=== PATIENT | female | born 1970 | race Caucasian/White ===

== ENCOUNTER 2018-05-10 17:53 | Emergency (ER) | payer BC, SELFPAY ==
[2018-05-10 17:53] VITALS: BP 141/77; PULSE 107; RESP 18; TEMP 37.1; O2SAT 97; BMI 35.1
[2018-05-10 18:08] VITALS: O2SAT 98
--- NOTE | 2018-05-10 18:08 | EKG12_ITS ---
Test Reason : CP Blood Pressure : / mmHG Vent. Rate : 095 BPM Atrial Rate : 095 BPM P-R Int : 152 ms QRS Dur : 084 ms QT Int : 352 ms P-R-T Axes : 018 010 006 degrees QTc Int : 442 ms Normal sinus rhythm Normal ECG Confirmed by LÁZARO SQUIRES MD ([id number]), publishing editor BE ROSARIO ([id number]) on 05/12/2018 1:03:31 PM Referred By: QUINTIN Confirmed By:LÁZARO SQUIRES MD
--- NOTE | 2018-05-10 18:10 | RAD_ITS ---
STUDY: X-RAY CHEST REASON FOR EXAM: Female, 47 years old. Chest pain TECHNIQUE: Single AP portable view of the chest. COMPARISON: None. FINDINGS: The lungs are clear and expanded. There is no demonstrated pleural abnormality. Normal size heart. Normal mediastinum and bipin. Normal visualized pulmonary arteries. Normal visualized aortic arch and descending thoracic aorta. Normal visualized thoracic spine. Normal visualized ribs, clavicles, and shoulders. There is no demonstrated abnormality of the visualized soft tissue structures of the upper abdomen. RAD/Chest 1 View (Portable) IMPRESSION: Normal x-ray examination of the chest. Electronically Signed: Augie Galeano MD at 19:31 EDT , Service support ,
--- NOTE | 2018-05-10 18:17 | ED.VISSUMM ---
- ER Visit Summary Date of Service: 05/10/18 Chief Complaint: Midsternal chest pain History of Present Illness: The patient is a 47 F history of cardiac disease. States for weeks or months she has had intermittent chest discomfort with certain foods like pizza. No trouble swallowing. States when she woke up this morning she felt like there was a weight on her chest. Denies any dyspnea. She normally walks 4-5 miles a day without any exertional chest pain or exertional dyspnea. There is no significant family history of cardiac disease. She is never had a DVT or PE. She denies any vomiting or hematemesis. She feels like if she could drop it might relieve the discomfort in the epigastric region. She is a non-smoker. She is never had any type of cardiac workup. Physical Examination: Middle-aged female no acute distress vital signs are stable and afebrile. Pulse ox 97% on room air no hypoxia. HEENT exam unremarkable. Neck nontender. No lymphadenopathy. Lungs clear to auscultation bilaterally. Heart regular rate and rhythm no murmur. Abdomen soft nondistended with normal bowel sounds no peritoneal signs. But the right upper and right lower quadrant unremarkable. No Clements sign. Minimal epigastric tenderness. Extremities moves all 4. Equal symmetrical radial pulses. 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 Dorsi plantar flexion intact. Calves nontender without edema or cords. Neurologically she is awake and alert. Back exam is nontender. Test Results: Portable 1 view chest x-ray no acute abnormality normal silhouette. Normal mediastinum. Read both by myself and the radiologist. CBC shows a white count slightly elevated at 13.9. Hemoglobin 13.9. No bands. Chemistries normal. Normal creatinine gap. Liver enzymes are normal. Lipase is normal. Troponin normal. EKG sinus rhythm rate of 95 with no acute signs of [place] or ischemia. Emergency Department Course and Treatment: Patient undergo cardiac workup. Clinically this sounds more like reflux. She will be treated with p.o. Pepcid and GI cocktail. Treatment Plan: Repeat exam patient is doing well at 2015. We went over all of her test results. She has had no recent exertional symptoms. She typically walks 4-5 miles a day without exertional chest pain or shortness of breath. She will be placed on Protonix and instructed to follow-up with her primary care physician. She may need upper endoscopy or an ultrasound of her gallbladder if she is not improving with the medication. Disposition: Discharge Impression: Acute chest pain uncertain etiology Gastroesophageal reflux This note was generated with [employer] dictation software. It may contain incorrect words, spelling, and punctuation that were not noted in review of the chart prior to signing ED Disposition - Plan for ED Patient: Referrals: Rashawn Levi MD [Primary Care Provider] -
--- NOTE | 2018-05-10 18:20 | ED.DCSUM_ITS ---
- ER Visit Summary Date of Service: 05/10/18 Chief Complaint: Midsternal chest pain History of Present Illness: The patient is a 47 F history of cardiac disease. States for weeks or months she has had intermittent chest discomfort with certain foods like pizza. No trouble swallowing. States when she woke up this morning she felt like there was a weight on her chest. Denies any dyspnea. She normally walks 4-5 miles a day without any exertional chest pain or exertional dyspnea. There is no significant family history of cardiac disease. She is never had a DVT or PE. She denies any vomiting or hematemesis. She feels like if she could drop it might relieve the discomfort in the epigastric region. She is a non-smoker. She is never had any type of cardiac workup. Physical Examination: Middle-aged female no acute distress vital signs are stable and afebrile. Pulse ox 97% on room air no hypoxia. HEENT exam unremarkable. Neck nontender. No lymphadenopathy. Lungs clear to auscultation bilaterally. Heart regular rate and rhythm no murmur. Abdomen soft nondistended with normal bowel sounds no peritoneal signs. But the right upper and right lower quadrant unremarkable. No Clements sign. Minimal epigastric tenderness. Extremities moves all 4. Equal symmetrical radial pulses. 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 Dorsi plantar flexion intact. Calves nontender without edema or cords. Neurologically she is awake and alert. Back exam is nontender. Test Results: Portable 1 view chest x-ray no acute abnormality normal silhouette. Normal mediastinum. Read both by myself and the radiologist. CBC shows a white count slightly elevated at 13.9. Hemoglobin 13.9. No bands. Chemistries normal. Normal creatinine gap. Liver enzymes are normal. Lipase is normal. Troponin normal. EKG sinus rhythm rate of 95 with no acute signs of [place] or ischemia. Emergency Department Course and Treatment: Patient undergo cardiac workup. Clinically this sounds more like reflux. She will be treated with p.o. Pepcid and GI cocktail. Treatment Plan: Repeat exam patient is doing well at 2015. We went over all of her test results. She has had no recent exertional symptoms. She typically walks 4-5 miles a day without exertional chest pain or shortness of breath. She will be placed on Protonix and instructed to follow-up with her primary care physician. She may need upper endoscopy or an ultrasound of her gallbladder if she is not improving with the medication. Disposition: Discharge Impression: Acute chest pain uncertain etiology Gastroesophageal reflux This note was generated with [employer] dictation software. It may contain incorrect words, spelling, and punctuation that were not noted in review of the chart prior to signing ED Disposition - Plan for ED Patient: Referrals: Rashawn Levi MD [Primary Care Provider] -
[2018-05-10] MEDS: Famotidine 20 MG Tablet 40 MG PO (18:28)
[2018-05-10] MEDS: Mag Hydrox/Al Hydrox/Simeth 30 ML UDC PO (18:28)
[2018-05-10 18:45] LABS: Absolute Lymphocyte Count 2.61 X10^3/ul (0.83-4.51); Absolute Neutrophil Count 10.2 X10^3/uL (2.0-7.7); Basophil# 0.02 X10^3/uL; Basophil% 0.1 % (0-1); Eosinophil# 0.05 X10^3/uL; Eosinophils% 0.4 % (0-5); Hematocrit 41.7 % (37-47); Hemoglobin 13.9 g/dl (12.0-15.0); Lymphocyte # 2.61 X10^3/ul (4.0); Lymphocyte % 18.8 % (19-41); Mean Corp Hgb Conc 33.3 g/gl (32-36); Mean Corpuscular Hgb 28.3 pg (27.0-32.0); Mean Corpuscular Volume 84.9 fL (81-99); Mean Platelet Vol. 10.3 fl (6.2-12.0); Monocyte# 1.01 X10^3/uL; Monocyte% 7.3 % (0-10); Neutrophil # 10.19 X10^3/uL (2.7-7.7); Neutrophil % 73.2 % (47-70); Platelet Count 299 K/mm3 (150-450); RBC Distribution Width CV 12.9 % (11.6-14.6); RBC Distribution Width SD 39.3 fl (35.1-43.9); Red Blood Count 4.91 M/mm3 (4.2-5.4); White Blood Count 13.9 K/mm3 (4.4-11.0)
[2018-05-10 18:48] LABS: POSITIVE COUNT NO; POSITIVE DIFFERENTIAL NO; POSITIVE MORPHOLOGY NO
[2018-05-10 18:56] LABS: AST(SGOT) 17 U/L (15-37); Alanine Aminotransfer ALT/SGPT 36 U/L (13-56); Albumin, Serum 3.7 g/dL (3.2-5.0); Alkaline Phosphatase 103 U/L (45-117); Anion Gap 3 (5-15); BUN 9 mg/dL (7-18); BUN/Creat Ratio 13.4 RATIO (10-20); Bilirubin, Direct 0.19 mg/dL (0.00-0.30); Chloride 106 mmol/L (98-107); Creatinine, Serum 0.67 mg/dL (0.55-1.02); EST Glomerular Filtration Rate 101 mL/min (>60); Est Glom Filt Rate - Afr Amer 122 mL/min (>60); Estimated Creatinine Clearance 87.71 ml/min; Glucose 91 mg/dL (74-106); Lipase 71 U/L (73-393); Potassium 3.8 mmol/L (3.5-5.1); Protein, Total 7.7 g/dL (6.4-8.2); Sodium Level 138 mmol/L (136-145)
--- NOTE | 2018-05-10 20:18 | ED.DEP ---
ED Disposition - Plan for ED Patient: Disposition: Home or Assisted Living Instructions: ED Chest Pain Atypical Unkn Cause, ED GERD Prescriptions: Pantoprazole Sodium [Protonix] 40 mg PO DAILY #30 tab Referrals: Rashawn Levi MD [Primary Care Provider] - As soon as possible Additional Instructions: Your EKG, chest x-ray and labs were all unremarkable. More than likely this is non-cardiac chest pain and may be secondary to reflux or gastritis. We placed on medication to help with that. Also follow-up your primary care physician if you not improving with the medication we may have to get an ultrasound of your gallbladder and/or have an upper scope done to evaluate your esophagus in your stomach. Return to the ER if you are feeling a lot worse, increasing pain or fever.
[2018-05-10 20:29] VITALS: BP 138/61; PULSE 90; RESP 18; O2SAT 96
== END 2018-05-10 20:31 | disposition home or self-care (01) ==
PROVIDERS: Emergency Provider Emergency Medicine; Family Provider Family Medicine; PCP Family Medicine
DX: R07.9 Chest pain, unspecified (principal); K21.9 Gastro-esophageal reflux disease without esophagitis
CPT/HCPCS: 71045; 80048; 80076; 83690; 84484; 85025; 93005; 99285; A4216

== ENCOUNTER 2018-09-13 05:22 | Emergency (ER) | payer BC, SELFPAY ==
[2018-09-13 05:23] VITALS: BP 125/81; PULSE 89; RESP 16; TEMP 36.6; O2SAT 95; BMI 34.0
--- NOTE | 2018-09-13 05:40 | ED.DCSUM_ITS ---
- ER Visit Summary Date of Service: 09/13/18 Chief Complaint: Wound/abscess History of Present Illness: The patient is a 47 F who presents with a wound to her right forehead. She initially noticed this 4 to 5 days ago. She does have a history of MRSA. She saw her primary care physician yesterday and was started on Bactrim. This morning when she woke she had increased facial swelling. She has no pain. No systemic symptoms such as fevers nausea vomiting. She is not diabetic. Physical Examination: Afebrile vitals unremarkable Patient does have a small wound on the right forehead and some surrounding erythema and soft tissue swelling there is some periorbital edema on the right which is likely reactive No fluctuance Heart regular No respiratory distress Test Results: Not indicated Emergency Department Course and Treatment: Patient soft tissue swelling is mostly on the right I believe related to the facial abscess/facial cellulitis. She has no pain. There is no focal fluctuance. No abscess amenable to incision and drainage at this time. She is not systemically ill. I advised that for the swelling she ice and elevate. Given that she is only had 2 doses of Bactrim I would not call this failed treatment yet at this point. I advised that she continue the Bactrim but if she is not improving within the next couple of days to be reevaluated. She understands to return for new or worsening symptoms. She will follow-up as an outpatient. She was discharged. Treatment Plan: [] Disposition: Discharge Impression: Facial cellulitis This note was generated with [employer] dictation software. It may contain incorrect words, spelling, and punctuation that were not noted in review of the chart prior to signing ED Disposition - Plan for ED Patient: Referrals: Rashawn Levi MD [Primary Care Provider] -
--- NOTE | 2018-09-13 05:42 | ED.DEP ---
ED Disposition - Plan for ED Patient: Instructions: CELLULITIS, Facial Referrals: Rashawn Levi MD [Primary Care Provider] -
[2018-09-13 05:49] VITALS: BP 126/78; PULSE 98; RESP 16; O2SAT 98
== END 2018-09-13 06:00 | disposition home or self-care (01) ==
PROVIDERS: Emergency Provider Emergency Medicine; Family Provider Family Medicine; PCP Family Medicine
DX: L03.211 Cellulitis of face (principal); L02.01 Cutaneous abscess of face; Z86.14 Personal history of Methicillin resistant Staphylococcus aureus infection
CPT/HCPCS: 99282; A4216

== ENCOUNTER → 2018-09-14 | Outpatient (CLI) | payer BC, SELFPAY ==
[2018-09-13 05:23] VITALS: BMI 34.0
== END | disposition home or self-care (01) ==
LOC: LABSPEC 12:48
PROVIDERS: Family Provider Family Medicine; PCP Family Medicine; Referring Provider Family Medicine; Visit Provider Family Medicine
DX: L02.01 Cutaneous abscess of face (principal)
CPT/HCPCS: 87070; 87077; 87186; 87205

== ENCOUNTER → 2019-07-05 10:14 | Outpatient (CLI) | payer BC, SELFPAY ==
--- NOTE | 2019-07-05 10:24 | US_ITS ---
STUDY: ABDOMINAL ULTRASOUND REASON FOR EXAM: Female, 48 years old. ABD PAIN TECHNIQUE: Transabdominal ultrasound was performed with real-time and static montejo scale imaging. TECHNICAL QUALITY: Adequate. COMPARISON: None. FINDINGS: Liver: The liver measures 14.5 cm. There is normal echogenicity of the liver. The bile ducts are within normal limits. There is hepatic color flow. The direction of portal flow is hepatopetal. There is no demonstrated mass lesion. Portal vein measurement: Gallbladder: Normal distended gallbladder. The gallbladder wall measures 3 mm. There is a negative sonographic Clements''s sign. There is no pericholecystic fluid. There is a solitary echogenic gallstone within the gallbladder. Common Bile Duct (C.B.D.): The common bile duct measures 5 mm. Pancreas: Normal size of the head, body and tail of the pancreas. There is normal echogenicity of the pancreas. There is no demonstrated pancreatic mass or cyst. Spleen: Normal size of the spleen. The spleen measures 12 cm. Right Kidney: Normal size of the right kidney. The right kidney measures 11.9 x 5.9 x 4.3 cm. Normal renal cortex. The right cortex measures 2.0 cm. There is no demonstrated renal mass or cyst. There is no right hydronephrosis. Left Kidney: Normal size of the left kidney. The left kidney measures 11.5 x 5.2 x 5.2 cm. Normal renal cortex. The left cortex measures 1.5 cm. There is no demonstrated renal mass or cyst. There is no left hydronephrosis. Aorta: Tapers normally I.V.C.: The IVC is patent. There is no ascites. There is a palpable lump noted by the patient in the epigastric region, there is a subcutaneous slightly hyperechoic well-defined 2.5 x 2.2 x 1.4 cm nodule, likely a lipoma. US/Abdomen Complete IMPRESSION: Cholelithiasis, no sonographic evidence of acute cholecystitis Likely subcutaneous lipoma corresponding to the palpable abnormality in the subcutaneous tissue near the epigastrium. No specific follow-up needed Electronically Signed: Santos Chicas MD at 11:53 EDT , Service support ,
== END ==
PROVIDERS: PCP Family Medicine; Referring Provider Family Medicine; Visit Provider Family Medicine
DX: R10.9 Unspecified abdominal pain (principal)
CPT/HCPCS: 76700

== ENCOUNTER 2019-07-14 08:15 | Day surgery (SDC) | payer BC, SELFPAY ==
[2019-07-11 12:30] VITALS: BMI 34.0
--- NOTE | 2019-07-13 11:59 | EKG12_ITS ---
Test Reason : PRE-OP Blood Pressure : / mmHG Vent. Rate : 088 BPM Atrial Rate : 088 BPM P-R Int : 148 ms QRS Dur : 084 ms QT Int : 360 ms P-R-T Axes : 068 038 020 degrees QTc Int : 435 ms Normal sinus rhythm Normal ECG Confirmed by LAMAR BRASWELL, ITZEL ([id number]), proposal editor GARO CARDENAS ([id number]) on 07/17/2019 11:34:53 AM Referred By: Ludin Barnard Confirmed By:ROMAIN NEWTON MD
[2019-07-13 12:40] LABS: Hematocrit 43.5 % (37-47); Hemoglobin 14.2 g/dL (12.0-15.0); Mean Corp Hgb Conc 32.6 g/dL (32-36); Mean Corpuscular Hgb 27.7 pg (27.0-32.0); Mean Corpuscular Volume 84.8 fL (81-99); Mean Platelet Vol. 10.5 fl (6.2-12.0); Platelet Count 328 K/mm3 (150-450); RBC Distribution Width SD 36.4 fl (35.1-43.9); Red Blood Count 5.13 M/mm3 (4.2-5.4); White Blood Count 7.2 K/mm3 (4.4-11.0)
[2019-07-13 12:55] LABS: Anion Gap 7 (5-15); BUN 9 mg/dL (7-18); BUN/Creat Ratio 14.1 RATIO (10-20); Calcium,Total 9.2 mg/dL (8.5-10.1); Chloride 107 mmol/L (98-107); Creatinine, Serum 0.64 mg/dL (0.55-1.02); EST Glomerular Filtration Rate 106 mL/min (>60); Est Glom Filt Rate - Afr Amer 128 mL/min (>60); Glucose 115 mg/dL (74-106); Potassium 3.7 mmol/L (3.5-5.1); Sodium Level 140 mmol/L (136-145)
[2019-07-14 08:45] LABS: Internal QC Validated? YES +Cl - CLEAR BKGD; Pregnancy, Urine Negative Negative
[2019-07-14 08:48] VITALS: BP 130/71; PULSE 88; RESP 16; TEMP 37; O2SAT 100; BMI 32.5
--- NOTE | 2019-07-14 08:54 | PCM.HP.BLA ---
Problem List (1) Cholelithiasis with chronic cholecystitis Status: Chronic Qualifiers: Cholelithiasis location: gallbladder Biliary obstruction: without biliary obstruction Qualified Code(s): K80.10 - Calculus of gallbladder with chronic cholecystitis without obstruction History and Physical Date of Admission: 07/14/19 Intake Visit Reasons: Gall Stones/U/S [facility] 07/04 Chief Complaint: cholelithiasis Partner Manager Required: No Is patient in pain?: No Allergies Sulfa (Sulfonamide Antibiotics) Allergy (Severe, Verified 07/11/19 12:25) facial swelling latex Allergy (Intermediate, Verified 07/11/19 12:25) Rash codeine Adverse Reaction (Verified 09/13/18 05:22) Other Medications NK 09/13/18 [History Confirmed 07/11/19] [facility] Medical History (Updated 07/11/19 @ 12:[address] Ludin Barnard MD) Cholelithiasis with chronic cholecystitis (Chronic) Abdominal pain (Acute) Cholelithiasis (Acute) Nausea & vomiting (Acute) Surgical History (Updated 07/11/19 @ 12:23 by Lucy Anglin) history incsion and drainage oral abscess (Acute) Family History (Updated 07/11/19 @ 12:23 by Lucy Anglin) Sister Asthma Social History (Updated 07/11/19 @ 12:[address] Ludin Barnard MD) Smoking Status: Never smoker alcohol intake: never substance use type: does not use HPI HPI HPI: JAIMIE CLAYTON, is a 48 F who presents to the office today for surgical consultation regarding increasingly frequent episodes of epigastric discomfort some radiation to the back some mild fever chilling sweats nausea. The patient is referred by Dr. Rashawn Gomez and a written copy my surgical consult recommendations will return to him. For over a year she has had the symptoms but they seem to be more frequent. Recently they have been severe enough with nausea and vomiting that she has decreased her diet to mostly salads. She has progressively had some weight gain over the past year. Sounds like some of her physical exercise has diminished. She was treated with a proton pump inhibitor but has not had any improvement. She has not had any surgery on her abdomen. She actually states that about a year ago because of discomfort she was sent to the emergency room to exclude cardiac etiology which she states was effectively done. [facility] Imaging Services [address] [place] [address] Abdomen Complete MR#: [id number] Name: JAIMIE CLAYTON [facility] #:[id number] : [id number] From: Chan Chicas MD PCP:Dr. Rashawn Gomez MD Status:REG CLI Study:Abdomen Complete Date of Exam:07/05/19 Exam#[id number] Ordering Dr: Rashawn Gomez MD STUDY: ABDOMINAL ULTRASOUND REASON FOR EXAM: Female, 48 years old. ABD PAIN TECHNIQUE: Transabdominal ultrasound was performed with real-time and static montejo scale imaging. TECHNICAL QUALITY: Adequate. COMPARISON: None. FINDINGS: Liver: The liver measures 14.5 cm. There is normal echogenicity of the liver. The bile ducts are within normal limits. There is hepatic color flow. The direction of portal flow is hepatopetal. There is no demonstrated mass lesion. Portal vein measurement: Gallbladder: Normal distended gallbladder. The gallbladder wall measures 3 mm. There is a negative sonographic Clements''s sign. There is no pericholecystic fluid. There is a solitary echogenic gallstone within the gallbladder. Common Bile Duct (C.B.D.): The common bile duct measures 5 mm. Pancreas: Normal size of the head, body and tail of the pancreas. There is normal echogenicity of the pancreas. There is no demonstrated pancreatic mass or cyst. Spleen: Normal size of the spleen. The spleen measures 12 cm. Right Kidney: Normal size of the right kidney. The right kidney measures 11.9 x 5.9 x 4.3 cm. Normal renal cortex. The right cortex measures 2.0 cm. There is no demonstrated renal mass or cyst. There is no right hydronephrosis. Left Kidney: Normal size of the left kidney. The left kidney measures 11.5 x 5.2 x 5.2 cm. Normal renal cortex. The left cortex measures 1.5 cm. There is no demonstrated renal mass or cyst. There is no left hydronephrosis. Aorta: Tapers normally I.V.C.: The IVC is patent. There is no ascites. There is a palpable lump noted by the patient in the epigastric region, there is a subcutaneous slightly hyperechoic well-defined 2.5 x 2.2 x 1.4 cm nodule, likely a lipoma. US/Abdomen Complete IMPRESSION: Cholelithiasis, no sonographic evidence of acute cholecystitis Likely subcutaneous lipoma corresponding to the palpable abnormality in the subcutaneous tissue near the epigastrium. No specific follow-up needed Electronically Signed: Santos Chicas MD at 11:53 EDT , Service support , HPI HPI HPI: JAIMIE CLAYTON, is a 48 F who presents to the office today for ROS General General: Yes weight change; no appetite, fatigue, colon cancer, breast cancer or weakness HEENT HEENT: No difficulty swallowing, eye injury, eye surgery, swollen glands or hoarseness Endo Endocrine: No thyroid disease, diabetes mellitus, thyroid cancer, Hair loss, heat intolerance or cold intolerance Skin Skin: No rash or changing moles Breast Breast: No left breast lump, right breast lump, nipple discharge, breast pain, abnormal mammogram, abnormal US or breast enlargement Musc Musculoskeletal: No back problems, arthritis, rheumatoid arthritis, gout or joint pain Cardio Cardiovascular: No murmur, pacemaker, heart disease, atrial fibrillation, high blood pressure, heart attack, heart stent, palpitations, shortness of breat with exertion or chest pain Psych Psychiatric: No depression, anxiety or hearing voices Resp Respiratory: No shortness of breath, No sleep apnea, No cough, No COPD, No asthma, No emphysema, No wheezing Gastro Gastrointestinal: Yes abdominal pain, Yes nausea or vomiting, No diarrhea, No constipation, No blood in stool, No acid reflux, No hemorrhoids, No ulcers, Yes gallbladder problem, No black,tarry stools Leo Hematologic: No blood thinners, No blood disorders, No bleeding, No anemia, No blood clots Neuro Neurologic: No system reviewed and no additional complaints, except as docu, No as per HPI, No abnormal walking, No abnormal hearing, No abnormal movements, No abnormal speech, No behavioral changes, No burning sensations, No confusion, No seizure-like activity, No unsteadiness, No dizziness, No localized weakness, No frequent falls, No headache(s), No lack of coordination, No loss of vision, No memory loss, No numbness, No other visual disturbances, No radiating pain, No restless legs, No sensory deficit, No fainting, No tingling, No tremor(s), No weakness, No other Exam Const General: cooperative, healthy appearing, comfortable, no acute distress Nutritional Appearance: obese Orientation: alert, awake HENNE Head: normal to inspection Chest Chest palpation & inspection: normal inspection of the chest Breast Palpation: No nipple discharge Resp Effort & Inspection: normal respiratory effort Auscultation: clear to auscultation bilaterally Cardio Rate: regular rate Rhythm: regular rhythm Heart Sounds: no murmurs GI Palpation: soft, no hepatosplenomegaly Auscultation: normal bowel sounds Musc Cervical Spine: normal cervical lordosis Neuro Cognition: normal cognition Extrem General: no calf tenderness Psych Affect: normal affect Assessment & Plan 1. Calculus of gallbladder with chronic cholecystitis without obstruction K80.10 Plan The patient's clinical presentation and findings are very much consistent with biliary colic, chronic cholecystitis cholelithiasis. I recommended the patient laparoscopic cholecystectomy with selective cholangiography. She is aware of the technique, benefit, risk and alternatives. She presents via the Covid-19 pandemic. She is aware that the [facility] administration suggests a low local incidence. I do concur with proceeding at a timing of her convenience as this pandemic will be ongoing for months. I appreciate the opportunity of assisting with her surgical care Cc: Dr. Rashawn Barnard M.D., F.A.C.S. Coding Level of Care Code 78750 Diagnoses Calculus of gallbladder with chronic cholecystitis without obstruction K80.10 ??Cholelithiasis location: gallbladder ??Biliary obstruction: without biliary obstruction I have re-examined the patient. There are no clinical changes since date of exam. Procedure Criteria Procedure Type: Elective COVID Risk Discussion: The surgeon/proceduralist and patient have discussed in detail the risk of exposure to and/or potential harm posed by the COVID-19 virus with having a surgery/procedure at this time versus the risk of delaying the surgery/procedure. It is not possible to know either the risk of delaying the surgery or procedure or chance of getting an infection with perfect accuracy, but a joint decision was made between the patient and the surgeon/proceduralist to proceed at this time with the scheduled surgery/procedure as indicated on the consent form.
--- NOTE | 2019-07-14 08:55 | DCINST_ITS ---
Discharge Diet: Light diet - advance as tolerated - if you have questions about your diet instructions, please talk to you doctor. Discharge Activity: May Not Drive - for 3-5 days or while taking narcotic pain medicine. May shower in (days): 1 Lifting Restrictions: 10 pounds Call your doctor if your incision/area has: Continuous Slow Oozing, Sudden Increased Bleeding, Increased Pain/ Swelling, Increased Redness, Foul Smelling Discharge Call your doctor if you observe: Fever of 101 or Higher Suture Line Care: Avoid Pulling/Pushing, Avoid Pinching/Bending Additional Dressing/Incision Instructions:: Change or remove dressing in 4 days. Leave steri-strips in place for 1 week. Allergies/Adverse Reactions: Allergies Sulfa (Sulfonamide Antibiotics) Allergy (Severe, Verified 07/14/19 08:45) facial swelling latex Allergy (Intermediate, Verified 07/14/19 08:45) Rash codeine Adverse Reaction (Verified 07/14/19 08:45) Other Medications to take at Discharge NK 09/13/18 Primary Care Physician: Rashawn Gomez MD [Primary Care Provider] - Test Results: Test results from this visit will be discussed in further detail at your follow- up appointment, if applicable. Please Follow Up With: Ludin Barnard MD - [phone] When: Call to make an appointment to be seen in about 10 days. Virtual
[2019-07-14] MEDS: Lactated Ringers 1,000 ML 100 ML IV ×2 (08:57→11:45)
[2019-07-14] MEDS: Cefazolin 2 GM in 0.9% Normal Saline 100 ML IV (10:28)
--- NOTE | 2019-07-14 10:40 | GALL_PTH ---
PATIENT: JAIMIE CLAYTON [place] [facility] [place][id number] AGE/SX: 48/F ROOM: RE07/14/[address]: Dr. Ludin Barnard MD : [id number] BED: DIS: 07/14/2019 SPEC #: [id number] RECD: 07/14/19 12:55 STATUS: IRMA NG #: [id number] MEDINA: 07/14/19 10:[address]: Ludin Barnard DEPT: SURGICAL PATHOLOGY RECD BY: Benjamin Block ENTERED: 07/17/19 09:25 SP TYPE: SUNDAR CHACON DR: Dr. Rashawn Gomez MD Tissues: Gallbladder, NOS Procedures: Surgery Specimen Level III HEADER OPERATION: Laparoscopic cholecystectomy with IOC PRE-OP DIAGNOSIS: Calculus gallbladder with chronic cholecystitis without obstruction TISSUE SUBMITTED: Gallbladder MICROSCOPIC DIAGNOSIS Gallbladder, cholecystectomy: Mild chronic cholecystitis, cholelithiasis and cholesterolosis. SJ:aminata 07/18/19 MICROSCOPIC DESCRIPTION Slides are reviewed. GROSS DESCRIPTION Received is one container labeled with the patient's name and designated gallbladder. The specimen consists of a gallbladder measuring 8 x 3 x 3 cm. The external surface is smooth and glistening. Focally, it is granular, hemorrhagic and contains cautery artifact. The lumen of the gallbladder contains yellow-green mucoid bile and one crystal-green calculus measuring 1 cm in diameter. The mucosa is bile-stained and without any mass lesions. The gallbladder wall averages 0.2 cm in thickness and is free of mass lesions. Electrical Foreman sections of the gallbladder and the cystic duct at margin of resection are submitted in one cassette. / AM:aminata 07/17/19 TC:3 CPT: 09637
--- NOTE | 2019-07-14 10:50 | RAD_ITS ---
STUDY: INTRAOPERATIVE GLANDULAR PATTERN. REASON FOR EXAM: Female, 48 years old. LAPAROSCOPIC cholecystectomy. FLUOROSCOPY TIME (if supplied): ( 19.9 seconds ) minutes/seconds. A cine loop consisting of 146 images was submitted. TECHNIQUE: An intraoperative Cholangiogram was performed by the surgeon. Imaging was obtained. COMPARISON: None. FINDINGS: The common bile duct is not dilated. No intraluminal filling defect is seen. The intrahepatic bile ducts are unremarkable. There is free flow of contrast into the duodenum. RAD/Cholangiogram/ O R,Initial IMPRESSION: Unremarkable intraoperative cholangiogram. Electronically Signed: Del Kellogg, at 13:41 EDT , Service support ,
[2019-07-14] MEDS: Bupivacaine Mpf 0.5% 30 ML VIAL (11:41)
--- NOTE | 2019-07-14 11:43 | PCM.OPRPT ---
Problem List (1) Cholelithiasis with chronic cholecystitis Status: Chronic Qualifiers: Cholelithiasis location: gallbladder Biliary obstruction: without biliary obstruction Qualified Code(s): K80.10 - Calculus of gallbladder with chronic cholecystitis without obstruction Report of Operation Date of Procedure: 07/14/19 Pre-Operative Diagnosis: Chronic cholecystitis cholelithiasis Post-Operative Diagnosis: Same Surgery/Procedure Performed:: Laparoscopic cholecystectomy with cholangiograms Description of Surgical Findings:: Timeout and informed consent was obtained. 48-year-old female was taken to the operating placed on the table underwent general endotracheal intubation anesthesia. The abdomen sterilely prepped and draped. 0.5% Marcaine was used as a local anesthetic. Throughout the procedure total 30 cc was used. Skin sites were pre-anesthetized. A vertical infraumbilical incision was created holding sutures of 0 Vicryl placed varies needle inserted saline drop test performed the abdomen was insufflated with CO2 to a pressure of 10 mmHg pressure. 10 mm trocar inserted. 10 laparoscope inserted. No evidence of any trocar injuries. On direct physician 5 mm trochars were placed in the epigastric mid abdomen right upper quadrant.. The abdomen was superficially inspected without gross abnormality. The gallbladder was distracted tedious blunt dissection was instituted at the infundibulum until clearly the cystic duct and cystic artery were identified. The artery was clipped proximally and distally prior to transecting it. Circumferential control was obtained of the cystic duct it was rather short. I was able to get the critical view. I placed a hemo-lock clip on the cystic duct made an incision placed a cholangiogram catheter and was able to get fluoroscopically control cholangiograms. This demonstrated free flow into the common bile duct. 2 hemo-lock clips were placed on the cystic duct stump prior to transecting it. The gallbladder was then tediously dissected free from the liver bed. Very small amount of bile spillage from the infundibular area occurred but that was rapidly aspirated free. The remainder was then nicely contained. The gallbladder was released immediately placed in a retrieval bag. The right upper quadrant was irrigated and aspirated free of excess fluid. Fibular was placed in the liver bed to further assure good hemostasis. With excellent hemostasis and a dry upper abdomen the gallbladder was exited the umbilicus. The air was allowed to deflate through the antiviral valve. Trochars were removed. The fascia at the umbilicus approximated up to 0 Vicryl [id number] suture. Skin edges approximated opted for Monocryl subdermal stitches. Steri-Strips Telfa OpSite dressings applied. Sponge and instrument and needle counts were reported to the surgeon to be correct. Blood loss minimal. Specimens gallbladder. Drains none. Blood loss minimal. Ludin Barnard M.D., F.A.C.S. Type of Anesthesia:: General Anesthesiologist: Chioma Segundo
[2019-07-14 11:59] VITALS: BP 130/71; BP 148/92; PULSE 94; RESP 16; TEMP 36.8; O2SAT 95
[2019-07-14 12:15] VITALS: BP 130/71; BP 143/73; PULSE 68; RESP 16; O2SAT 97
[2019-07-14 12:30] VITALS: BP 130/71; BP 144/79; PULSE 65; RESP 16; O2SAT 97
[2019-07-14 12:41] VITALS: BP 130/71; BP 138/86; PULSE 83; RESP 18; TEMP 36.4; O2SAT 97
[2019-07-14] MEDS: HYDROcodone Bitartrate/Apap 5/325 Tablet PO (14:52)
[2019-07-14 15:22] VITALS: BP 130/71; BP 139/79; PULSE 71; RESP 16; TEMP 36.4; O2SAT 94
== END 2019-07-14 15:56 | disposition home or self-care (01) ==
LOC: SDC 08:16 → AC 08:22
PROVIDERS: Anesthesiology; PCP Family Medicine; Referring Provider Surgery; Visit Provider Surgery
PROC: (CPT 47610; principal; 2019-07-14 10:20)
DX: K80.10 Calculus of gallbladder with chronic cholecystitis without obstruction (principal); Z11.59 Encounter for screening for other viral diseases
CPT/HCPCS: 00790; 47563; 36415; 74300; 76000; 80048; 81025; 85027; 87635; 88304; 93005; G2023; J7120; J2405; U0004

== ENCOUNTER → 2020-02-07 07:42 | Outpatient (CLI) | payer BC, SELFPAY ==
--- NOTE | 2020-02-07 07:49 | CT_ITS ---
STUDY: CT MAXILLOFACIAL SINUSES REASON FOR EXAM: Female, 49 years old. Sinusitis. LEFT MAXILLARY PAIN FOLLOWING ROOT CANAL 1 YEAR AGO . QUESTIONING BONE EROSION IN AREA OF ROOT CANAL/ LEFT UPPER RADIATION DOSAGE (If Supplied By Facility): CTDIvol = ( 33.06 ) mGy, DLP = ( 813.19 ) mGycm TECHNIQUE: The patient was scanned in a multi detector CT scanner. High resolution axial imaging was performed without the administration of intravenous contrast material. Sagittal and coronal images were reconstructed. Individualized dose optimization techniques were used for this CT. COMPARISON: None. FINDINGS: FRONTAL SINUSES: Normal aeration, without mucosal inflammatory disease. ETHMOIDAL SINUSES: Normal aeration, without mucosal inflammatory disease. MAXILLARY SINUSES: Normal aeration, without mucosal inflammatory disease. SPHENOIDAL SINUSES: Normal aeration, without mucosal inflammatory disease. There is patency of the bilateral maxillary infundibuli with normal uncinate processes, ethmoid bullae, and hiatus semilunaris. Normal bilateral middle turbinates. Normal bilateral inferior turbinates. There is a right sided nasal septal deviation with a right sided nasal septal spur. There is patency of the bilateral nasal airways. The visualized osseous structures are normal. The visualized bilateral orbital contents are normal. CT/Sinus/Facial Bone IMPRESSION: Normal CT examination of the maxillofacial sinuses. Nasal septal deviation towards the right side of the midline with a spur Electronically Signed: Del Kellogg, at 10:09 EST , Service support ,
== END ==
PROVIDERS: PCP Family Medicine; Referring Provider Otolaryngology; Visit Provider Otolaryngology
DX: J32.9 Chronic sinusitis, unspecified (principal)
CPT/HCPCS: 70486

== ENCOUNTER → 2020-10-17 | Outpatient (CLI) | payer BC, SELFPAY | END | disposition home or self-care (01) | LOC: LABSPEC 14:33 | PROVIDERS: PCP Family Medicine; Referring Provider Family Medicine; Visit Provider Family Medicine | DX: U07.1 COVID-19 (principal) | CPT/HCPCS: 87635; U0005; U0003 ==

== ENCOUNTER → 2020-11-29 12:49 | Outpatient (CLI) | payer BC, SELFPAY ==
[2020-11-29 15:49] LABS: Anion Gap 6 (5-15); BUN 9 mg/dL (7-18); BUN/Creat Ratio 13.7 RATIO (10-20); Calcium,Total 9.2 mg/dL (8.5-10.1); Chloride 105 mmol/L (98-107); Creatinine, Serum 0.66 mg/dL (0.55-1.02); EST Glomerular Filtration Rate 102 mL/min (>60); Est Glom Filt Rate - Afr Amer 124 mL/min (>60); Glucose 90 mg/dL (74-106); Potassium 3.5 mmol/L (3.5-5.1); Sodium Level 139 mmol/L (136-145); Thyroid Stim Hormone (TSH) < 0.01 uIU/mL (0.358-3.74)
[2020-11-29 17:23] LABS: Basophil# 0.02 X10^3/uL; Basophil% 0.2 % (0-1); Eosinophil# 0.21 X10^3/uL; Eosinophils% 2.1 % (0-5); Hematocrit 42.5 % (37-47); Hemoglobin 13.8 g/dL (12.0-15.0); Lymphocyte % 30.3 % (19-41); Mean Corp Hgb Conc 32.5 g/dL (32-36); Mean Corpuscular Hgb 27.2 pg (27.0-32.0); Mean Corpuscular Volume 83.7 fL (81-99); Mean Platelet Vol. 11.2 fl (6.2-12.0); Monocyte# 0.63 X10^3/uL; Monocyte% 6.4 % (0-10); NRBC Flagged by Analyzer 0 % (0-5); Neutrophil # 6.01 X10^3/uL (2.7-7.7); Neutrophil % 60.7 % (47-70); Platelet Count 339 K/mm3 (150-450); RBC Distribution Width CV 12.5 % (11.6-14.6); RBC Distribution Width SD 38.1 fl (35.1-43.9); Red Blood Count 5.08 M/mm3 (4.2-5.4); White Blood Count 9.9 K/mm3 (4.4-11.0)
== END ==
PROVIDERS: PCP Family Medicine; Referring Provider Family Medicine; Visit Provider Family Medicine
DX: R63.5 Abnormal weight gain (principal)
CPT/HCPCS: 36415; 80048; 84443; 85025

== ENCOUNTER → 2020-12-12 12:18 | Outpatient (CLI) | payer BC, SELFPAY ==
[2020-12-12 15:46] LABS: Free T3 5.5 pg/mL (2.18-3.98); T4 Free Direct 1.59 ng/dL (0.76-1.46); Thyroid Stim Hormone (TSH) < 0.01 uIU/mL (0.358-3.74)
[2020-12-14 11:09] LABS: Thyroid Peroxidase AB < 8 IU/mL (0-34)
== END ==
PROVIDERS: PCP Family Medicine; Referring Provider Internal Medicine Endocrinology, Diabetes & Metabolism; Visit Provider Internal Medicine Endocrinology, Diabetes & Metabolism
DX: E05.90 Thyrotoxicosis, unspecified without thyrotoxic crisis or storm (principal)
CPT/HCPCS: 36415; 84439; 84443; 84481; 86376

== ENCOUNTER → 2021-01-03 10:35 | Outpatient (CLI) | payer BC, SELFPAY ==
[2021-01-03 13:26] LABS: T4 Free Direct 1.02 ng/dL (0.76-1.46); Thyroid Stim Hormone (TSH) < 0.01 uIU/mL (0.358-3.74)
== END ==
PROVIDERS: PCP Family Medicine; Referring Provider Internal Medicine Endocrinology, Diabetes & Metabolism; Visit Provider Internal Medicine Endocrinology, Diabetes & Metabolism
DX: E05.90 Thyrotoxicosis, unspecified without thyrotoxic crisis or storm (principal)
CPT/HCPCS: 36415; 84439; 84443

== ENCOUNTER 2021-02-27 08:36 | Outpatient (CLI) | payer BC, SELFPAY ==
[2021-02-27 10:35] LABS: Free T3 1.9 pg/mL (2.18-3.98); T4 Free Direct 0.56 ng/dL (0.76-1.46); Thyroid Stim Hormone (TSH) 1.74 uIU/mL (0.358-3.74)
== END 2021-02-27 23:59 | disposition short-term general hospital (02) ==
LOC: MTLAB 08:38
PROVIDERS: PCP Family Medicine; Referring Provider Internal Medicine Endocrinology, Diabetes & Metabolism; Visit Provider Internal Medicine Endocrinology, Diabetes & Metabolism
DX: E05.90 Thyrotoxicosis, unspecified without thyrotoxic crisis or storm (principal)
CPT/HCPCS: 36415; 84439; 84443; 84481

== ENCOUNTER 2021-04-14 08:33 | Outpatient (CLI) | payer BC, SELFPAY ==
[2021-04-14 10:25] LABS: Free T3 2.2 pg/mL (2.18-3.98); T4 Free Direct 0.69 ng/dL (0.76-1.46); Thyroid Stim Hormone (TSH) 2.71 uIU/mL (0.358-3.74)
== END 2021-04-14 23:59 | disposition home or self-care (01) ==
LOC: MTLAB 08:34
PROVIDERS: PCP Family Medicine; Referring Provider Internal Medicine Endocrinology, Diabetes & Metabolism; Visit Provider Internal Medicine Endocrinology, Diabetes & Metabolism
DX: E05.90 Thyrotoxicosis, unspecified without thyrotoxic crisis or storm (principal)
CPT/HCPCS: 36415; 84439; 84443; 84481

== ENCOUNTER → 2021-06-12 | Outpatient (CLI) | payer BC, SELFPAY ==
[2021-06-12 10:28] LABS: Free T3 2.5 pg/mL (2.18-3.98); T4 Free Direct 0.83 ng/dL (0.76-1.46); Thyroid Stim Hormone (TSH) 0.52 uIU/mL (0.358-3.74)
== END | disposition home or self-care (01) ==
LOC: MTLAB 08:35
PROVIDERS: PCP Family Medicine; Referring Provider Internal Medicine Endocrinology, Diabetes & Metabolism; Visit Provider Internal Medicine Endocrinology, Diabetes & Metabolism
DX: E05.90 Thyrotoxicosis, unspecified without thyrotoxic crisis or storm (principal)
CPT/HCPCS: 36415; 84439; 84443; 84481

== ENCOUNTER → 2021-09-13 | Outpatient (CLI) | payer BC, SELFPAY ==
--- NOTE | 2021-09-13 08:55 | US_ITS ---
STUDY: THYROID ULTRASOUND REASON FOR EXAM: Female, 50 years old. Goiter. TECHNIQUE: Ultrasound evaluation of the thyroid was performed with real-time and static montejo-scale imaging. COMPARISON: None. FINDINGS: RIGHT LOBE: The right lobe of the thyroid gland measures 6.6 x 4.1 x 2.9 cm. There is a heterogeneous echotexture. The upper pole there is a mixed solid and cystic mass measuring 0.9 x 0.9 x 1.0 cm. This is taller than it is wide and its solid components are isoechoic to the parenchyma. In the lower pole there is a 3.8 x 3.6 x 3.0 cm mixed solid and cystic nodule. Normal vascularity on DOPPLER imaging. LEFT LOBE: The left lobe of the thyroid gland measures 3.8 x 1.1 x 0.8 cm. There is a homogeneous echotexture. There are no demonstrated solid, cystic or complex lesions. Normal vascularity on DOPPLER imaging. ISTHMUS: The isthmus measures 0.4 cm. The regional lymph nodes are normal. US/Thyroid IMPRESSION: Enlarged right thyroid with multiple soft tissues nodules. The smaller nodule in the upper pole is mildly suspicious, TIRADS category TR 3. No FNA or follow-up is necessary due to its small size. The larger nodule is considered benign, category TR 2. No follow-up or FNA required. Electronically Signed: Lv John DO at 22:51 EDT ,
== END | disposition home or self-care (01) ==
LOC: US 08:54
PROVIDERS: PCP Family Medicine; Referring Provider Internal Medicine Endocrinology, Diabetes & Metabolism; Visit Provider Internal Medicine Endocrinology, Diabetes & Metabolism
DX: E04.9 Nontoxic goiter, unspecified (principal); E05.90 Thyrotoxicosis, unspecified without thyrotoxic crisis or storm
CPT/HCPCS: 76536

== ENCOUNTER → 2021-10-21 | Outpatient (CLI) | payer BC, SELFPAY ==
[2021-10-21 10:37] LABS: Free T3 2.7 pg/mL (2.18-3.98); T4 Free Direct 0.76 ng/dL (0.76-1.46); Thyroid Stim Hormone (TSH) 0.28 uIU/mL (0.358-3.74)
== END | disposition home or self-care (01) ==
LOC: MTLAB 08:41
PROVIDERS: PCP Family Medicine; Referring Provider Internal Medicine Endocrinology, Diabetes & Metabolism; Visit Provider Internal Medicine Endocrinology, Diabetes & Metabolism
DX: E05.90 Thyrotoxicosis, unspecified without thyrotoxic crisis or storm (principal)
CPT/HCPCS: 36415; 84439; 84443; 84481

== ENCOUNTER → 2022-02-11 | Outpatient (CLI) | payer BC, SELFPAY ==
[2022-02-11 15:37] LABS: Free T3 2.7 pg/mL (2.18-3.98); T4 Free Direct 1.07 ng/dL (0.76-1.46); Thyroid Stim Hormone (TSH) 0.09 uIU/mL (0.358-3.74)
== END | disposition home or self-care (01) ==
LOC: MTLAB 11:31
PROVIDERS: PCP Family Medicine; Referring Provider Internal Medicine Endocrinology, Diabetes & Metabolism; Visit Provider Internal Medicine Endocrinology, Diabetes & Metabolism
DX: E05.90 Thyrotoxicosis, unspecified without thyrotoxic crisis or storm (principal)
CPT/HCPCS: 36415; 84439; 84443; 84481

== ENCOUNTER → 2022-05-04 | Outpatient (CLI) | payer BC, SELFPAY ==
[2022-05-04 13:03] LABS: Free T3 2.8 pg/mL (2.18-3.98); T4 Free Direct 0.88 ng/dL (0.76-1.46); Thyroid Stim Hormone (TSH) 0.17 uIU/mL (0.358-3.74)
== END | disposition home or self-care (01) ==
PROVIDERS: PCP Family Medicine; Referring Provider Internal Medicine Endocrinology, Diabetes & Metabolism; Visit Provider Internal Medicine Endocrinology, Diabetes & Metabolism
DX: E05.90 Thyrotoxicosis, unspecified without thyrotoxic crisis or storm (principal)
CPT/HCPCS: 36415; 84439; 84443; 84481

== ENCOUNTER → 2022-07-08 | Outpatient (CLI) | payer BC, SELFPAY ==
[2022-07-08 13:26] LABS: Free T3 2.6 pg/mL (2.18-3.98); T4 Free Direct 0.93 ng/dL (0.76-1.46); Thyroid Stim Hormone (TSH) 0.14 uIU/mL (0.358-3.74)
== END | disposition home or self-care (01) ==
LOC: MTLAB 10:01
PROVIDERS: PCP Family Medicine; Referring Provider Internal Medicine Endocrinology, Diabetes & Metabolism; Visit Provider Internal Medicine Endocrinology, Diabetes & Metabolism
DX: E05.90 Thyrotoxicosis, unspecified without thyrotoxic crisis or storm (principal)
CPT/HCPCS: 36415; 84439; 84443; 84481

== ENCOUNTER → 2022-10-14 | Outpatient (CLI) | payer BC, SELFPAY ==
[2022-10-14 15:07] LABS: Absolute Lymphocyte Count 2.58 X10^3/uL (0.83-4.51); Absolute Neutrophil Count 8.4 X10^3/uL (2.0-7.7); Basophil# 0.03 X10^3/uL; Basophil% 0.3 % (0-1); Eosinophil# 0.12 X10^3/uL; Hematocrit 43.1 % (37-47); Hemoglobin 14.5 g/dL (12.0-15.0); Lymphocyte # 2.58 X10^3/ul (0.83-4.51); Lymphocyte % 22.2 % (19-41); Mean Corp Hgb Conc 33.6 g/dL (32-36); Mean Corpuscular Hgb 28.9 pg (27.0-32.0); Mean Corpuscular Volume 85.9 fL (81-99); Mean Platelet Vol. 10.7 fl (6.2-12.0); Monocyte# 0.48 X10^3/uL; Monocyte% 4.1 % (0-10); NRBC Flagged by Analyzer 0 % (0-5); Neutrophil # 8.35 X10^3/uL (2.7-7.7); Neutrophil % 72.1 % (47-70); Platelet Count 303 K/mm3 (150-450); RBC Distribution Width CV 13.3 % (11.6-14.6); RBC Distribution Width SD 40.9 fl (35.1-43.9); Red Blood Count 5.02 M/mm3 (4.2-5.4); White Blood Count 11.6 K/mm3 (4.4-11.0)
[2022-10-14 15:40] LABS: ALB/GLOB Ratio 0.9 RATIO (0.9-2.4); AST(SGOT) 16 U/L (15-37); Alanine Aminotransfer ALT/SGPT 27 U/L (13-56); Albumin, Serum 3.7 g/dL (3.2-5.0); Alkaline Phosphatase 98 U/L (45-117); Anion Gap 5 (5-15); BUN 10 mg/dL (7-18); BUN/Creat Ratio 12.2 RATIO (10-20); Calcium,Total 9.1 mg/dL (8.5-10.1); Chloride 108 mmol/L (98-107); Cholesterol 155 mg/dL (200); Creatinine, Serum 0.82 mg/dL (0.55-1.02); EST Glomerular Filtration Rate 78 mL/min (>60); Est Glom Filt Rate - Afr Amer 95 mL/min (>60); Globulin 3.9 g/dL (2.2-4.2); Glucose 86 mg/dL (74-106); High Density Lipoprotein 56 mg/dL; Potassium 4.3 mmol/L (3.5-5.1); Protein, Total 7.6 g/dL (6.4-8.2); Sodium Level 138 mmol/L (136-145); Triglycerides 81 mg/dL; Very Low Density Lipoprotein 16 mg/dL (5-40)
[2022-10-14 16:46] LABS: Hemoglobin A1c 5.3 % (3.8-5.6)
== END | disposition home or self-care (01) ==
LOC: MTLAB 11:26
PROVIDERS: PCP Family Medicine; Referring Provider Family Medicine; Visit Provider Family Medicine
DX: Z00.00 Encounter for general adult medical examination without abnormal findings (principal); Z13.0 Encounter for screening for diseases of the blood and blood-forming organs and certain disorders involving the immune mechanism; Z13.1 Encounter for screening for diabetes mellitus; Z13.220 Encounter for screening for lipoid disorders
CPT/HCPCS: 36415; 80053; 80061; 83036; 85025

== ENCOUNTER → 2022-12-14 | Outpatient (CLI) | payer BC, SELFPAY ==
[2022-12-14 13:53] LABS: Follicle Stimulating Hormone 3.6 mIU/mL; Free T3 2.4 pg/mL (2.18-3.98); Luteinizing Hormone 4.2 mIU/mL; Thyroid Stim Hormone (TSH) 0.28 uIU/mL (0.358-3.74)
== END | disposition home or self-care (01) ==
LOC: MTLAB 08:31
PROVIDERS: PCP Family Medicine; Referring Provider Internal Medicine Endocrinology, Diabetes & Metabolism; Visit Provider Internal Medicine Endocrinology, Diabetes & Metabolism
DX: E05.90 Thyrotoxicosis, unspecified without thyrotoxic crisis or storm (principal); N91.2 Amenorrhea, unspecified
CPT/HCPCS: 36415; 83001; 83002; 84439; 84443; 84481

== ENCOUNTER → 2023-06-14 | Outpatient (CLI) | payer BC, SELFPAY ==
[2023-06-14 11:20] LABS: Free T3 2.5 pg/mL (2.18-3.98); T4 Free Direct 0.83 ng/dL (0.76-1.46); Thyroid Stim Hormone (TSH) 0.38 uIU/mL (0.358-3.74)
== END | disposition home or self-care (01) ==
LOC: MTLAB 09:07
PROVIDERS: PCP Family Medicine; Referring Provider Internal Medicine Endocrinology, Diabetes & Metabolism; Visit Provider Internal Medicine Endocrinology, Diabetes & Metabolism
DX: E05.90 Thyrotoxicosis, unspecified without thyrotoxic crisis or storm (principal)
CPT/HCPCS: 36415; 84439; 84443; 84481

== ENCOUNTER → 2023-07-17 | Outpatient (CLI) | payer BC, SELFPAY ==
[2023-07-22 15:09] LABS: Lyme IgG P18 Ab Absent (.); Lyme IgG P23 Ab Absent (.); Lyme IgG P28 Ab Absent (.); Lyme IgG P30 Ab Absent (.); Lyme IgG P39 Ab Absent (.); Lyme IgG P41 Ab Absent (.); Lyme IgG P45 Ab Absent (.); Lyme IgG P58 Ab Absent (.); Lyme IgG P66 Ab Absent (.); Lyme IgG P93 Ab Absent (.); Lyme IgG WB Interpretation Negative (.); Lyme IgM P23 Ab Absent (.); Lyme IgM P39 Ab Absent (.); Lyme IgM P41 Ab Absent (.); Lyme IgM WB Interpretation Negative (.)
== END | disposition home or self-care (01) ==
LOC: LAB 11:42
PROVIDERS: PCP Family Medicine; Referring Provider Physician Assistant Medical; Visit Provider Physician Assistant Medical
DX: L98.9 Disorder of the skin and subcutaneous tissue, unspecified (principal); W57.XXXA Bitten or stung by nonvenomous insect and other nonvenomous arthropods, initial encounter
CPT/HCPCS: 36415; 86617; 87070; 87205

== ENCOUNTER → 2023-12-08 | Outpatient (CLI) | payer BC, SELFPAY ==
[2023-12-08 13:18] LABS: Free T3 2.7 pg/mL (2.18-3.98); T4 Free Direct 0.79 ng/dL (0.76-1.46); Thyroid Stim Hormone (TSH) 0.445 uIU/mL (0.358-3.740)
== END | disposition home or self-care (01) ==
LOC: MTLAB 09:21
PROVIDERS: PCP Family Medicine; Referring Provider Internal Medicine Endocrinology, Diabetes & Metabolism; Visit Provider Internal Medicine Endocrinology, Diabetes & Metabolism
DX: E05.90 Thyrotoxicosis, unspecified without thyrotoxic crisis or storm (principal)
CPT/HCPCS: 36415; 84439; 84443; 84481

== ENCOUNTER → 2024-03-16 | Outpatient (CLI) | payer BC, SELFPAY ==
[2024-03-16 13:01] LABS: Follicle Stimulating Hormone 70.6 mIU/mL; Free T3 3.5 pg/mL (2.18-3.98); T4 Free Direct 1.12 ng/dL (0.76-1.46)
== END | disposition home or self-care (01) ==
LOC: MTLAB 09:48
PROVIDERS: PCP Family Medicine; Referring Provider Internal Medicine Endocrinology, Diabetes & Metabolism; Visit Provider Internal Medicine Endocrinology, Diabetes & Metabolism
DX: E05.90 Thyrotoxicosis, unspecified without thyrotoxic crisis or storm (principal); N91.2 Amenorrhea, unspecified
CPT/HCPCS: 36415; 83001; 84439; 84443; 84481

== ENCOUNTER → 2024-05-18 | Outpatient (CLI) | payer BC, SELFPAY ==
[2024-05-18 12:09] LABS: Free T3 3.3 pg/mL (2.18-3.98); Thyroid Stim Hormone (TSH) 0.243 uIU/mL (0.300-4.200)
== END | disposition home or self-care (01) ==
LOC: MTLAB 09:32
PROVIDERS: PCP Family Medicine; Referring Provider Internal Medicine Endocrinology, Diabetes & Metabolism; Visit Provider Internal Medicine Endocrinology, Diabetes & Metabolism
DX: E05.90 Thyrotoxicosis, unspecified without thyrotoxic crisis or storm (principal)
CPT/HCPCS: 36415; 84439; 84443; 84481

== ENCOUNTER → 2024-06-22 | Outpatient (CLI) | payer BC, SELFPAY ==
[2024-06-22 14:23] LABS: Free T3 3.5 pg/mL (2.18-3.98); Thyroid Stim Hormone (TSH) 0.242 uIU/mL (0.300-4.200)
== END | disposition home or self-care (01) ==
LOC: MTLAB 10:01
PROVIDERS: PCP Family Medicine; Referring Provider Internal Medicine Endocrinology, Diabetes & Metabolism; Visit Provider Internal Medicine Endocrinology, Diabetes & Metabolism
DX: E05.90 Thyrotoxicosis, unspecified without thyrotoxic crisis or storm (principal)
CPT/HCPCS: 36415; 84439; 84443; 84481

== ENCOUNTER → 2024-12-14 | Outpatient (CLI) | payer BC, SELFPAY ==
[2024-12-14 13:26] LABS: Free T3 2.9 pg/mL (2.18-3.98)
== END | disposition home or self-care (01) ==
LOC: LAB 11:15
PROVIDERS: Referring Provider Internal Medicine Endocrinology, Diabetes & Metabolism; Visit Provider Internal Medicine Endocrinology, Diabetes & Metabolism
DX: E05.90 Thyrotoxicosis, unspecified without thyrotoxic crisis or storm (principal)
CPT/HCPCS: 36415; 84439; 84443; 84481

== ENCOUNTER → 2025-01-31 | Outpatient (CLI) | payer BC, SELFPAY ==
[2025-01-31 10:14] LABS: Hematocrit 43.0 % (37-47); Hemoglobin 13.6 g/dL (12.0-15.0); Immature Granulocytes Count 0.030 X10^3/uL (0.0-0.0); Mean Corp Hgb Conc 31.6 g/dL (32-36); Mean Corpuscular Volume 84.8 fL (81-99); Mean Platelet Vol. 10.3 fl (6.2-12.0); NRBC Flagged by Analyzer 0 % (0-5); Platelet Count 334 K/mm3 (150-450); RBC Distribution Width CV 13.2 % (11.6-14.6); RBC Distribution Width SD 41.1 fl (35.1-43.9); Red Blood Count 5.07 M/mm3 (4.2-5.4); White Blood Count 8.6 K/mm3 (4.4-11.0)
[2025-01-31 10:52] LABS: AST(SGOT) 28 U/L (<=31); Alanine Aminotransfer ALT/SGPT 33 U/L (<=34); Albumin, Serum 4.2 g/dL (3.5-5.0); Alkaline Phosphatase 100 U/L (35-104); Anion Gap 11 (5-15); BUN 12 mg/dL (4-19); BUN/Creat Ratio 17.3 RATIO (10-20); Calcium,Total 9.6 mg/dL (7.6-11.0); Carbon Dioxide 26.2 mmol/L (21.0-32.0); Chloride 104 mmol/L (98-108); Cholesterol 173 mg/dL (<=200); Free T3 3.8 pg/mL (2.18-3.98); Globulin 3.3 g/dL (2.2-4.2); Glucose 98 mg/dL (70-99); Low Density Lipoprotein Calc. 89 mg/dL; Potassium 4.1 mmol/L (3.3-5.1); Triglycerides 117 mg/dL; Very Low Density Lipoprotein 23 mg/dL (5-40); cholesterol:hdl ratio screen 2.72
== END | disposition home or self-care (01) ==
LOC: MTLAB 09:12
PROVIDERS: Referring Provider Internal Medicine Endocrinology, Diabetes & Metabolism; Visit Provider Internal Medicine Endocrinology, Diabetes & Metabolism
DX: E05.90 Thyrotoxicosis, unspecified without thyrotoxic crisis or storm (principal)
CPT/HCPCS: 36415; 80053; 80061; 84439; 84443; 84481; 85025